=== PATIENT | female | born 2000 | race Caucasian/White ===

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

== ENCOUNTER 2018-05-25 16:23 | Emergency (ER) | payer MEDICAID ==
[2018-05-25] MEDS ORDERED: ACETAMINOPHEN 1,000 MG/100 ML BTL IVPB ONE (17:18)
[2018-05-25] MEDS ORDERED: 0.9 % SODIUM CHLORIDE 1,000 ML BAG IV ONE (17:18)
[2018-05-25] MEDS ORDERED: ONDANSETRON HCL IV 4 MG/2 ML VIAL IVP ONE (17:18)
--- NOTE | 2018-05-25 17:24 | Emergency Department Record ---
History of Present Illness - General Chief Complaint: Abdominal Pain Stated Complaint: ABD PAINS AND BLOOD IN STOOL Time Seen by Provider: 05/25/18 17:13 Source: Patient Mode of Arrival: Ambulatory Limitations: No limitations - History of Present Illness Initial Comments: 18 yo female presents with crampy abdominal pain, nausea, and diarrhea. The onset was this morning around 10 am. She states some of the material in the diarrhea looked pinkish. NO recent antibiotics. NO known sick contacts. The pain is across the middle of the abdomen. MD Complaint: Abdominal pain, Other (nausea, diarrhea) Onset/Timin -: Days(s) Location: Periumbilical, LUQ, RUQ Radiation: None Migration to: No migration Severity: Mild Severity scale (1-10): 10 Quality: Sharp Consistency: Constant Improves With: Nothing Worsens With: Nothing Associated Symptoms: Anorexia, Diarrhea, Nausea Treatments Prior to Arrival: Other - Related Data Home Medications Medication Instructions Recorded Confirmed Last Taken Fluoxetine HCl [Prozac] 40 mg PO DAILY 05/25/18 05/25/18 05/25/18 08:00 Methylphenidate HCl [Ritalin] 5 mg PO DAILY 05/25/18 05/25/18 Unknown Sucralfate [Carafate] PO Q6H PRN 05/25/18 05/25/18 14:00 Previous Rx's Medication Instructions Recorded Ondansetron [Zofran Odt] 4 mg PO Q8H #15 tab.rapdis 05/25/18 Allergies Allergy/AdvReac Type Severity Reaction Status Date / Time omeprazole AdvReac Intermediate ABDOMINAL Verified 05/25/18 17:08 PAIN Travel Screening - Travel/Exposure Within Last 30 Days Have you traveled within the last 30 days?: No - Travel/Exposure Within Last Year Have you traveled outside the [place] in the last year?: No - Additonal Travel Details Have you been exposed to anyone with a communicable illness?: No - Travel Symptoms Symptom Screening: Diarrhea, Vomiting Review of Systems Constitutional: Reports: Chills. Denies: Fever, Malaise Eyes: Denies: Eye discharge ENT: Denies: Congestion, Throat pain Respiratory: Denies: Cough, Dyspnea Cardiovascular: Denies: Chest pain, Palpitations, Syncope Endocrine: Denies: Fatigue Gastrointestinal: Reports: Abdominal pain, Diarrhea, Nausea. Denies: Constipation, Hematemesis, Hematochezia, Melena, Vomiting Genitourinary: Denies: Dysuria, Urgency Musculoskeletal: Denies: Arthralgia, Back pain, Neck pain Skin: Denies: Bruising, Change in color, Rash Neurological: Denies: Headache Psychiatric: Denies: Anxiety Hematological/Lymphatic: Denies: Easy bleeding, Easy bruising Past Medical History - SOCIAL HISTORY Smoking Status: Current every day smoker Alcohol Use: None Drug Use Detail:: Marijuana - RESPIRATORY Hx Respiratory Disorders: No - CARDIOVASCULAR Hx Cardio Disorders: No - NEURO Hx Neuro Disorders: Yes Hx Headaches: Yes - GI Hx GI Disorders: Yes Hx Abdominal Pain: Yes Hx Reflux: Yes Hx Nausea/Vomiting: Yes Hx Rectal Bleeding: Yes Hx Ulcer: Yes (no bleeding) Hx Wt Loss/Wt Gain: Yes (lost 22 lbs/5 months) Comment:: diarrhea on/off, has occ blood in stool - Hx Genitourinary Disorders: Yes - ENDOCRINE Hx Endocrine Disorders: No - MUSCULOSKELETAL Hx Musculoskeletal Disorders: Yes - PSYCH Hx Psych Problems: Yes Hx Depression: Yes Comment:: ADHD; ODD - HEMATOLOGY/ONCOLOGY Hx Hematology/Oncology Disorders: No Family Medical History Any Significant Family History?: Yes Hx Depression: Brother/Sister *Depression Comment: sister Hx Heart Disease: Grandparents Hx HTN: Mother, Grandparents Hx Kidney Disease: Mother Hx Resp Disorders: Mother *Resp Comment: copd Physical Exam - General General Appearance: Alert, Oriented x3, Cooperative, No acute distress Limitations: No limitations - Head Head exam: Atraumatic - Eye Eye exam: Normal appearance. negative: Conjunctival injection - ENT ENT exam: Normal exam Ear exam: Normal external inspection Nasal Exam: Normal inspection Mouth exam: Normal external inspection - Neck Neck exam: Normal inspection - Respiratory Respiratory exam: Normal lung sounds bilaterally. negative: Respiratory distress - Cardiovascular Cardiovascular Exam: Regular rate, Normal rhythm, Normal heart sounds - GI/Abdominal GI/Abdominal exam: Soft, Normal bowel sounds, Tenderness (mild tenderness mid abdomen, very soft, mild tenderness). negative: Diminished bowel sounds, Distended, Guarding, Hernia, Rebound, Rigid - Extremities Extremities exam: Normal inspection. negative: Pedal edema - Back Back exam: Denies: CVA tenderness (R), CVA tenderness (L) - Neurological Neurological exam: Alert, Oriented X3 - Psychiatric Psychiatric exam: Normal affect, Normal mood - Skin Skin exam: Dry, Intact, Normal color, Warm Course Vital Signs 05/25/18 16:57 Temperature 98.3 F Pulse Rate 71 Respiratory 17 Rate Blood Pressure 119/69 Pulse Ox 100 - Reevaluation(s) Reevaluation #1: 05/25/18 18:25 The CBC was reviewed No acute changes. No anemia 05/25/18 19:05 The labs were reviewed No acute changes or abnormalities The patient has not had any vomiting or diarrhea The abdomen is very soft I do not recommend CT at this time as her symptoms are most consistent with enteritis with vomiting and diarrhea I discussed reasons to return if she has an fever, return of diarrhea or bloody stools. Medical Decision Making - Lab Data Result diagrams: 05/25/18 18:04 05/25/18 18:04 Disposition Disposition: Discharge Clinical Impression: Diarrhea Disposition: Home, Self-Care Condition: (1) Good Instructions: Acute Diarrhea (ED) Additional Instructions: Return if you have any return of diarrhea, blood in the stool, fever or pain Off work tomorrow, rest and stay hydrated. Prescriptions: Ondansetron [Zofran Odt] 4 mg PO Q8H #15 tab.rapdis Forms: Patient Portal Access Time of Disposition: 19:08 Quality - Quality Measures Quality Measures: N/A - Blood Pressure Screening Does Patient Have Any of the Following: No Blood Pressure Classification: Normal BP Reading Systolic Measurement: 119 Diastolic Measurement: 69 Screening for High Blood Pressure: < Normal BP, F/U Not Required > [G8783]
[2018-05-25 18:13] LABS: BASO % 0.5 % (0-6); EOS % 0.4 % (0-6); GRAN % 61.3 % (47-80); HEMATOCRIT 39.7 % (35.0-47.0); HEMOGLOBIN 12.8 gm/dl (11.6-16.0); LYMPH % 28.9 % (16-45); MEAN CELL VOLUME 90.8 fl (81-97); MEAN CORPUSCULAR HEMOGLOBIN 29.3 pg (27-33); MEAN CORPUSCULAR HGB CONC 32.2 g/dl (32-36); MEAN PLATELET VOLUME 10.8 fl (7.4-10.4); MONO % 8.9 % (0-9); PLATELET COUNT 218 K/uL (130-400); RED BLOOD COUNT 4.37 M/uL (3.80-5.40); RED CELL DISTRIBUTION WIDTH 14.7 % (11.5-14.5); WHITE BLOOD COUNT W/O DIFF 8.5 K/uL (4.2-12.2)
[2018-05-25 18:24] LABS: BLOOD UREA NITROGEN 13 mg/dL (6-20); CREATININE 0.7 mg/dL (0.5-0.9); EST GLOMERULAR FILTRATION RATE > 60 mL/min
[2018-05-25 18:27] LABS: GLUCOSE,RANDOM 78 mg/dL (74-109)
[2018-05-25 18:30] LABS: ALB/GLOB RATIO 1.4 (1.1-1.8); ALBUMIN 4.1 g/dL (4.0-5.0); ALKALINE PHOSPHATASE 68 U/L (45-87); ALT/SGPT 11 U/L (<33); AST/SGOT 16 U/L (10.0-35.0); LIPASE 31 U/L (13-60)
[2018-05-25 19:12] LABS: URINE APPEARANCE CLEAR; URINE BILIRUBIN NEGATIVE (NEGATIVE); URINE BLOOD NEGATIVE (NEGATIVE); URINE COLOR YELLOW; URINE GLUCOSE (UA) NEGATIVE (NEGATIVE); URINE KETONE NEGATIVE (NEGATIVE); URINE LEUKOCYTE ESTERASE NEGATIVE (NEGATIVE); URINE NITRITE NEGATIVE (NEGATIVE); URINE PROTEIN NEGATIVE (NEGATIVE); URINE UROBILINOGEN 0.2 E.U./dL (0.20 - 1.00)
[2018-05-25 19:13] LABS: HCG,QUALITATIVE URINE NEGATIVE (NEGATIVE)
== END 2018-05-25 19:27 | disposition home or self-care (01) ==
LOC: ER 16:23
DX: R19.7 Diarrhea, unspecified (principal); R10.33 Periumbilical pain; R11.0 Nausea; F17.210 Nicotine dependence, cigarettes, uncomplicated
CPT/HCPCS: 99284 ×2; 96365; 96375; 96361; 83690; 85025; 80053; 81003; 81025; J2405; J7030

== ENCOUNTER 2018-06-11 22:36 | Emergency (ER) | payer MEDICAID ==
[2018-06-11] MEDS ORDERED: IBUPROFEN 600 MG TABLET PO ONE (23:01)
--- NOTE | 2018-06-11 23:14 | Emergency Department Record ---
History of Present Illness - General Chief Complaint: Ankle/Foot Injury Stated Complaint: RT FOOT PAIN Time Seen by Provider: 06/11/18 22:55 Source: Patient Mode of Arrival: Ambulatory Limitations: No limitations - History of Present Illness Initial Comments: pt had a 450lb cart role over her foot today. Complaint: Foot injury Onset/Timin -: Hour(s) Injury: Foot: Right Type of Injury: Other Place: Work Severity: Moderate Severity scale (1-10): 10 Improves With: Nothing Worsens With: Weight bearing Context: Other Associated Symptoms: Unable to bear weight Treatments Prior to Arrival: Cold therapy - Related Data Home Medications Medication Instructions Recorded Confirmed Last Taken No Home Med [NO HOME MEDS] 06/11/18 06/11/18 Unknown Allergies Allergy/AdvReac Type Severity Reaction Status Date / Time omeprazole AdvReac Intermediate ABDOMINAL Verified 06/11/18 22:43 PAIN Travel Screening - Travel/Exposure Within Last 30 Days Have you traveled within the last 30 days?: No - Travel/Exposure Within Last Year Have you traveled outside the [place] in the last year?: No - Additonal Travel Details Have you been exposed to anyone with a communicable illness?: No - Travel Symptoms Symptom Screening: None Review of Systems Reviewed: No additional complaints except as noted below Constitutional: Reports: As per HPI. Denies: Chills, Fever, Malaise, Night sweats, Weakness, Weight change Eyes: Reports: As per HPI. Denies: Eye discharge, Eye pain, Photophobia, Vision change ENT: Reports: As per HPI. Denies: Congestion, Dental pain, Ear pain, Epistaxis , Hearing loss, Throat pain Respiratory: Reports: As per HPI. Denies: Cough, Dyspnea, Hemoptysis, Stridor, Wheezes Cardiovascular: Reports: As per HPI. Denies: Arrhythmia, Chest pain, Dyspnea on exertion, Edema, Murmurs, Orthopnea, Palpitations, Paroxysmal nocturnal dyspnea, Rheumatic Fever, Syncope Endocrine: Reports: As per HPI. Denies: Fatigue, Heat or cold intolerance, Polydipsia, Polyuria Gastrointestinal: Reports: As per HPI. Denies: Abdominal pain, Constipation, Diarrhea, Hematemesis, Hematochezia, Melena, Nausea, Vomiting Genitourinary: Reports: As per HPI. Denies: Abnormal menses, Discharge, Dyspareunia, Dysuria, Frequency, Hematuria, Incontinence, Retention, Urgency Musculoskeletal: Reports: As per HPI. Denies: Arthralgia, Back pain, Gout, Joint swelling, Myalgia, Neck pain Skin: Reports: As per HPI. Denies: Bruising, Change in color, Change in hair/ nails, Lesions, Pruritus, Rash Neurological: Reports: As per HPI. Denies: Abnormal gait, Confusion, Headache, Numbness, Paresthesias, Seizure, Tingling, Tremors, Vertigo, Weakness Psychiatric: Reports: As per HPI. Denies: Anxiety, Auditory hallucinations, Depression, Homicidal thoughts, Suicidal thoughts, Visual hallucinations Hematological/Lymphatic: Reports: As per HPI. Denies: Anemia, Blood Clots, Easy bleeding, Easy bruising, Swollen glands Past Medical History - SOCIAL HISTORY Smoking Status: Current every day smoker Alcohol Use: None Drug Use: Occasional Drug Use Detail:: Marijuana - RESPIRATORY Hx Respiratory Disorders: No - CARDIOVASCULAR Hx Cardio Disorders: No - NEURO Hx Neuro Disorders: Yes Hx Headaches: Yes - GI Hx GI Disorders: Yes Hx Abdominal Pain: Yes Hx Reflux: Yes Hx Nausea/Vomiting: Yes Hx Rectal Bleeding: Yes Hx Ulcer: Yes (no bleeding) Hx Wt Loss/Wt Gain: Yes (lost 22 lbs/5 months) Comment:: diarrhea on/off, has occ blood in stool - Hx Genitourinary Disorders: No - ENDOCRINE Hx Endocrine Disorders: No - MUSCULOSKELETAL Hx Musculoskeletal Disorders: Yes - PSYCH Hx Psych Problems: Yes Hx Depression: Yes Comment:: ADHD; ODD - HEMATOLOGY/ONCOLOGY Hx Hematology/Oncology Disorders: No Family Medical History Any Significant Family History?: No Hx Depression: Brother/Sister *Depression Comment: sister Hx Heart Disease: Grandparents Hx HTN: Mother, Grandparents Hx Kidney Disease: Mother Hx Resp Disorders: Mother *Resp Comment: copd Physical Exam - General General Appearance: Alert, Oriented x3, Cooperative, Mild distress - Head Head exam: Normal inspection - Eye Eye exam: Normal appearance, PERRL, EOMI Pupils: Normal accommodation - ENT ENT exam: Normal exam, Mucous membranes moist, Normal external ear exam, Normal orophraynx Ear exam: Normal external inspection. negative: External canal tenderness Nasal Exam: Normal inspection. negative: Discharge, Sinus tenderness Mouth exam: Normal external inspection, Tongue normal Teeth exam: Normal inspection. negative: Dental caries Throat exam: Normal inspection. negative: Tonsillar erythema, Tonsillar exudate - Neck Neck exam: Normal inspection, Full ROM. negative: Tenderness - Respiratory Respiratory exam: Normal lung sounds bilaterally. negative: Respiratory distress - Cardiovascular Cardiovascular Exam: Regular rate, Normal rhythm, Normal heart sounds - GI/Abdominal GI/Abdominal exam: Soft, Normal bowel sounds. negative: Tenderness - Rectal Rectal exam: Deferred - exam: Deferred - Extremities Extremities exam: Normal inspection, Full ROM, Normal capillary refill, Tenderness (r foot) - Back Back exam: Reports: Normal inspection, Full ROM. Denies: Muscle spasm, Rash noted, Tenderness - Neurological Neurological exam: Alert, CN II-XII intact, Normal gait, Oriented X3 - Psychiatric Psychiatric exam: Normal affect, Normal mood - Skin Skin exam: Dry, Intact, Normal color, Warm Course Vital Signs 06/11/18 22:41 Temperature 97.7 F Pulse Rate [ 81 Pulse Ox Probe] Respiratory 20 Rate Blood Pressure 121/75 [Left Arm] Pulse Ox 100 Disposition Disposition: Discharge Clinical Impression: Foot contusion Qualifiers: Encounter type: initial encounter Laterality: right Qualified Code(s): S90.31XA - Contusion of right foot, initial encounter Disposition: Home, Self-Care Condition: (1) Good Instructions: Foot Contusion (ED) Additional Instructions: follow up with family doctor. ice and elevation. return sooner if worse. motrin with food Forms: Patient Portal Access Quality - Quality Measures Quality Measures: N/A - Blood Pressure Screening Does Patient Have Any of the Following: No Blood Pressure Classification: Pre-Hypertensive BP Reading Systolic Measurement: 121 Diastolic Measurement: 75 Screening for High Blood Pressure: < Pre-Hypertensive BP, F/U Documented > [ G8950] Pre-Hypertensive Follow-up Interventions: Follow-up with rescreen every year.
--- NOTE | 2018-06-12 14:38 | RADIOLOGY REPORT ---
EXAM: RIGHT FOOT HISTORY: FOOT TRAUMA. TECHNIQUE: Three views of the right foot were obtained. Comparison: Right foot radiographs 03/03/17. FINDINGS: No acute fracture is seen. No evidence of dislocation. 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 IMPRESSION: NO ACUTE OSSEOUS FINDINGS. JOB NUMBER: [id number] MTDD
== END 2018-06-11 23:46 | disposition home or self-care (01) ==
LOC: ER 22:36
DX: S90.31XA Contusion of right foot, initial encounter (principal); W22.8XXA Striking against or struck by other objects, initial encounter; Y99.0 Civilian activity done for income or pay; F17.210 Nicotine dependence, cigarettes, uncomplicated
CPT/HCPCS: 99283

== ENCOUNTER 2018-06-24 10:04 | Emergency (ER) | payer MEDICAID ==
--- NOTE | 2018-06-24 10:37 | Emergency Department Record ---
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 She has been cutting her L arm and did cut it again a half hour ago. The patient denies any overdose or taking any pills. Her Td is UTD. MD Complaint: Feels depressed, Suicidal ideation Onset/Timin -: Minutes(s) Associated Psychiatric Symptoms: Depression, Suicidal ideation History of same: Yes Quality: Constant Improves With: None Worsens With: None Associated Symptoms: Denies other symptoms Treatments Prior to Arrival: None If Self Harm: Admits thoughts of self harm, Has plan, Has acted on plan, Self- inflicted trauma Details of Plan: Patient admits to taking a large knife and cutting her arm in an attempt to kill herself. - [place] Coma Scale Eye Response: (4) Open spontaneously Motor Response: (6) Obeys commands Verbal Response: (5) Oriented Usman Total: 15 - Related Data Allergies Allergy/AdvReac Type Severity Reaction Status Date / Time omeprazole AdvReac Intermediate ABDOMINAL Verified 06/11/18 22:43 PAIN Review of Systems Constitutional: Denies: Chills, Fever Past Medical History - SOCIAL HISTORY Smoking Status: Current every day smoker Alcohol Use: None Drug Use: Occasional Drug Use Detail:: Marijuana - RESPIRATORY Hx Respiratory Disorders: No - CARDIOVASCULAR Hx Cardio Disorders: No - NEURO Hx Neuro Disorders: Yes Hx Headaches: Yes - GI Hx GI Disorders: Yes Hx Abdominal Pain: Yes Hx Reflux: Yes Hx Nausea/Vomiting: Yes Hx Rectal Bleeding: Yes Hx Ulcer: Yes (no bleeding) Hx Wt Loss/Wt Gain: Yes (lost 22 lbs/5 months) Comment:: diarrhea on/off, has occ blood in stool - Hx Genitourinary Disorders: No - ENDOCRINE Hx Endocrine Disorders: No - MUSCULOSKELETAL Hx Musculoskeletal Disorders: Yes - PSYCH Hx Psych Problems: Yes Hx Depression: Yes Comment:: ADHD; ODD - HEMATOLOGY/ONCOLOGY Hx Hematology/Oncology Disorders: No Family Medical History Any Significant Family History?: Yes Hx Depression: Brother/Sister *Depression Comment: sister Hx Heart Disease: Grandparents Hx HTN: Mother, Grandparents Hx Kidney Disease: Mother Hx Resp Disorders: Mother *Resp Comment: copd Physical Exam - General General Appearance: Alert, Cooperative, No acute distress - Head Head exam: Atraumatic, Normocephalic - Eye Eye exam: Normal appearance, PERRL - Neck Neck exam: Normal inspection, Full ROM. negative: Tenderness - Respiratory Respiratory exam: Normal lung sounds bilaterally. negative: Respiratory distress - Cardiovascular Cardiovascular Exam: Regular rate, Normal rhythm, Normal heart sounds - GI/Abdominal GI/Abdominal exam: Soft, Normal bowel sounds. negative: Tenderness - Extremities Extremities exam: negative: Normal inspection (There is a VERY superficial 3 cm L forearm lac present and many old scars from self injury.) - Neurological Neurological exam: Alert, Normal gait. negative: Abnormal gait, Motor sensory deficit - Psychiatric Psychiatric exam: Anxious, Depressed Course Vital Signs 06/24/18 10:12 Temperature 98.0 F Pulse Rate 118 H Respiratory 22 Rate Blood Pressure 140/88 Pulse Ox 99 - Reevaluation(s) Reevaluation #1: Procedure note: The L forearm does have a superficial 3 cm lac present. It was cleansed with sterile water and betadine and was closed with steri-strips. 06/24/18 11:06 Reevaluation #2: The patient is doing very well at this time and is resting comfortably. I did discuss the case with a third loader at [facility] and they will review the chart and hopefully accept her soon. 06/24/18 11:54 Reevaluation #3: The patient is doing very well at this time. She is very calm and cooperative and pleasant. 06/24/18 13:25 Reevaluation #4: The patient was accepted by [facility] so we will transfer. 06/24/18 13:34 Medical Decision Making - Data Complexity MDM Data: Labs Ordered and/or Reviewed - Lab Data Result diagrams: 06/24/18 10:45 06/24/18 10:45 Disposition Disposition: Discharge Clinical Impression: Suicide attempt Disposition: Acute Care Hospital Transfer Accepting Physician: Carlos Eduardo Time Discussed w/Accepting Physician: 13:35 Condition: (2) Stable Instructions: Depression (ED) Additional Instructions: Please proceed to [facility] and keep the L arm dry until healed. Forms: Patient Portal Access Time of Disposition: 13:35 Quality - Quality Measures Quality Measures: N/A - Blood Pressure Screening View Details: Yes Does Patient Have Any of the Following: No Blood Pressure Classification: Pre-Hypertensive BP Reading Systolic Measurement: 140 Diastolic Measurement: 88 Screening for High Blood Pressure: < Pre-Hypertensive BP, F/U Documented > [ G8950] Pre-Hypertensive Follow-up Interventions: Referral to alternative/primary care provider.
[2018-06-24 10:58] LABS: BASO % 0.2 % (0-6); EOS % 1.3 % (0-6); HEMATOCRIT 41.3 % (35.0-47.0); HEMOGLOBIN 13.2 gm/dl (11.6-16.0); LYMPH % 31.1 % (16-45); MEAN CELL VOLUME 90.4 fl (81-97); MEAN CORPUSCULAR HEMOGLOBIN 28.9 pg (27-33); MEAN PLATELET VOLUME 10.5 fl (7.4-10.4); MONO % 8.4 % (0-9); PLATELET COUNT 207 K/uL (130-400); RED BLOOD COUNT 4.57 M/uL (3.80-5.40); RED CELL DISTRIBUTION WIDTH 14.6 % (11.5-14.5); WHITE BLOOD COUNT W/O DIFF 6.3 K/uL (4.2-12.2)
[2018-06-24 11:14] LABS: BLOOD UREA NITROGEN 16 mg/dL (6-20); CREATININE 0.7 mg/dL (0.5-0.9); EST GLOMERULAR FILTRATION RATE > 60 mL/min; TOTAL PROTEIN 7.3 g/dL (6.6-8.7)
[2018-06-24 11:16] LABS: GLUCOSE,RANDOM 90 mg/dL (74-109)
[2018-06-24 11:19] LABS: ALB/GLOB RATIO 1.4 (1.1-1.8); ALBUMIN 4.3 g/dL (4.0-5.0); ALKALINE PHOSPHATASE 70 U/L (45-87); ALT/SGPT 17 U/L (<33); AST/SGOT 21 U/L (10.0-35.0)
[2018-06-24 11:23] LABS: ACETAMINOPHEN < 5.0 ug/mL (10.0-30.0); SALICYLATE < 0.3 mg/dL (2.8-20)
[2018-06-24 11:37] LABS: URINE APPEARANCE CLEAR; URINE BILIRUBIN NEGATIVE (NEGATIVE); URINE BLOOD NEGATIVE (NEGATIVE); URINE COLOR YELLOW; URINE GLUCOSE (UA) NEGATIVE (NEGATIVE); URINE KETONE NEGATIVE (NEGATIVE); URINE LEUKOCYTE ESTERASE NEGATIVE (NEGATIVE); URINE NITRITE NEGATIVE (NEGATIVE); URINE PROTEIN NEGATIVE (NEGATIVE); URINE UROBILINOGEN 0.2 E.U./dL (0.20 - 1.00)
[2018-06-24 11:43] LABS: AMPHETAMINE SCREEN URINE NOT DETECTED; BARBITURATE SCREEN URINE NOT DETECTED; BENZODIAZEPINE SCREEN URINE NOT DETECTED; COCAINE SCREEN URINE NOT DETECTED; METHADONE SCREEN URINE NOT DETECTED; METHAMPHETAMINE SCREEN NOT DETECTED; OPIATE SCREEN URINE NOT DETECTED; OXYCODONE SCREEN URINE NOT DETECTED; PHENCYCLIDINE SCREEN URINE NOT DETECTED; PROPOXYPHENE SCREEN URINE NOT DETECTED; THC SCREEN URINE NOT DETECTED; TRICYCLIC ANTIDEPRESSANT SCRN NOT DETECTED
[2018-06-24 11:53] LABS: HCG,QUALITATIVE URINE NEGATIVE (NEGATIVE)
== END 2018-06-24 14:09 | disposition short-term general hospital (02) ==
LOC: ER 10:04
DX: S51.812A Laceration without foreign body of left forearm, initial encounter (principal); X78.1XXA Intentional self-harm by knife, initial encounter; F17.210 Nicotine dependence, cigarettes, uncomplicated
CPT/HCPCS: 80053; 80305; 80320; 80329; 81003; 81025; 85025; 99285

== ENCOUNTER 2018-08-08 19:44 | Emergency (ER) | payer MEDICAID ==
--- NOTE | 2018-08-08 20:00 | Emergency Department Record ---
History of Present Illness - General Chief Complaint: Abdominal Pain Stated Complaint: STOMACH ULCERS Time Seen by Provider: 08/08/18 19:51 Source: Patient Mode of Arrival: Ambulatory Limitations: No limitations - History of Present Illness Initial Comments: 18 yo female presents to ED for evaluation of "abdominal pain from my stomach ulcers". Patient reports a history of stomach ulcers for the past 4.5 years, underwent endoscopy x 3. Patient reports that she stopped her carafate 1 month ago, does not take a PPI at her baseline. Patient does report nausea/vomiting symptoms, denies fevers, chills, or previous abdominal surgery. MD Complaint: Abdominal pain Onset/Timin -: Days(s) Location: Epigastric Radiation: None Severity: Moderate Quality: Burning Consistency: Constant Improves With: Nothing Worsens With: Nothing Associated Symptoms: Vomiting - Related Data Home Medications Medication Instructions Recorded Confirmed Last Taken Albuterol Sulfate [Albuterol 2 puff INH Q4HR PRN 08/08/18 08/08/18 08/08/18 Sulfate Hfa] Previous Rx's Medication Instructions Recorded Pantoprazole Sodium [Protonix] 40 mg PO DAILY #30 tablet. 08/08/18 Allergies Allergy/AdvReac Type Severity Reaction Status Date / Time omeprazole AdvReac Intermediate ABDOMINAL Verified 08/08/18 20:33 PAIN Review of Systems Constitutional: Denies: Chills, Fever, Malaise, Night sweats Eyes: Denies: Eye discharge, Eye pain ENT: Denies: Congestion, Ear pain, Epistaxis Respiratory: Denies: Cough, Dyspnea Cardiovascular: Denies: Chest pain, Dyspnea on exertion Endocrine: Denies: Fatigue, Heat or cold intolerance Gastrointestinal: Reports: Abdominal pain, Nausea, Vomiting Genitourinary: Denies: Incontinence, Retention Musculoskeletal: Denies: Arthralgia, Back pain Skin: Denies: Bruising, Change in color Neurological: Denies: Abnormal gait, Confusion, Headache, Seizure Psychiatric: Denies: Anxiety Hematological/Lymphatic: Denies: Anemia, Blood Clots Past Medical History - SOCIAL HISTORY Smoking Status: Current every day smoker Drug Use: Occasional Drug Use Detail:: Marijuana - RESPIRATORY Hx Respiratory Disorders: No - CARDIOVASCULAR Hx Cardio Disorders: No - NEURO Hx Neuro Disorders: Yes Hx Headaches: Yes - GI Hx GI Disorders: Yes Hx Abdominal Pain: Yes Hx Reflux: Yes Hx Nausea/Vomiting: Yes Hx Rectal Bleeding: Yes Hx Ulcer: Yes (no bleeding) Hx Wt Loss/Wt Gain: Yes (lost 22 lbs/5 months) Comment:: diarrhea on/off, has occ blood in stool - Hx Genitourinary Disorders: No - ENDOCRINE Hx Endocrine Disorders: No - MUSCULOSKELETAL Hx Musculoskeletal Disorders: Yes - PSYCH Hx Psych Problems: Yes Hx Depression: Yes Comment:: ADHD; ODD - HEMATOLOGY/ONCOLOGY Hx Hematology/Oncology Disorders: No Family Medical History Hx Depression: Brother/Sister *Depression Comment: sister Hx Heart Disease: Grandparents Hx HTN: Mother, Grandparents Hx Kidney Disease: Mother Hx Resp Disorders: Mother *Resp Comment: copd Physical Exam - General General Appearance: Alert, Oriented x3, Cooperative, Mild distress Limitations: No limitations - Head Head exam: Atraumatic, Normocephalic, Normal inspection Head exam detail: negative: Abrasion, Contusion, Alba's sign, General tenderness, Hematoma, Laceration - Eye Eye exam: Normal appearance. negative: Conjunctival injection, Periorbital swelling, Periorbital tenderness, Scleral icterus - ENT Ear exam: negative: Auricular hematoma, Auricular trauma Nasal Exam: negative: Active bleeding, Discharge, Dried blood, Foreign body Mouth exam: negative: Drooling, Laceration, Muffled voice, Tongue elevation - Neck Neck exam: Normal inspection. negative: Meningismus, Tenderness - Respiratory Respiratory exam: Normal lung sounds bilaterally. negative: Rales, Respiratory distress, Rhonchi, Stridor - Cardiovascular Cardiovascular Exam: Regular rate, Normal rhythm, Normal heart sounds - GI/Abdominal GI/Abdominal exam: Soft, Tenderness (TTP to the epigastric region on examination , no rebound or guarding symptoms are present. No peritoneal signs are present on examination.). negative: Rebound, Rigid - Rectal Rectal exam: Deferred - exam: Deferred - Extremities Extremities exam: Normal inspection. negative: Pedal edema, Tenderness - Back Back exam: Denies: CVA tenderness (R), CVA tenderness (L) - Neurological Neurological exam: Alert, Normal gait, Oriented X3 - Psychiatric Psychiatric exam: Normal affect, Normal mood - Skin Skin exam: Normal color. negative: Abrasion Type of lesion: negative: abrasion Course Vital Signs 08/08/18 19:49 Temperature 98.1 F Pulse Rate [ 102 H Pulse Ox Probe] Respiratory 20 Rate Blood Pressure 102/90 [Left Arm] Pulse Ox 99 - Reevaluation(s) Reevaluation #1: 08/08/18 19:58 Patient was seen and examined Discussed performing laboratory studies for further evaluation, patient declines stating "I know this pain is from my ulcers". GI cocktail ordered, will reassess. Reevaluation #2: 08/08/18 20:40 Patient was reassessed, reports that she is feeling much better, resting comfortably on her mobile phone. Patient appears stable for discharge on Protonix as directed (reports previous reaction to pepcid). Patient appears stable for discharge at this time. Disposition Disposition: Discharge Clinical Impression: Epigastric abdominal pain Disposition: Home, Self-Care Condition: (2) Stable Instructions: Peptic Ulcer (ED) Additional Instructions: Return to ED if your symptoms worsen or if you have any concerns. Protonix as directed. Follow-up with your family doctor in 3-5 days as directed. Prescriptions: Pantoprazole Sodium [Protonix] 40 mg PO DAILY #30 tablet.dr Forms: Patient Portal Access Time of Disposition: 20:42 Quality - Quality Measures Quality Measures: N/A - Blood Pressure Screening Does Patient Have Any of the Following: No Blood Pressure Classification: Hypertensive Reading Systolic Measurement: 102 Diastolic Measurement: 90 Screening for High Blood Pressure: < First Hypertensive BP, F/U Documented > [ G8950] First Hypertensive Follow-up Interventions: Referral to alternative/primary care provider.
[2018-08-08] MEDS: MAGNESIUM HYDROXIDE/AL HYDROX 30 ML, LIDOCAINE VISC 2% 15ML 15 ML PO ONE ×2 (20:07)
== END 2018-08-08 20:53 | disposition home or self-care (01) ==
LOC: ER 19:44
DX: R10.13 Epigastric pain (principal); R11.2 Nausea with vomiting, unspecified; F17.210 Nicotine dependence, cigarettes, uncomplicated
CPT/HCPCS: 99282; 99283

== ENCOUNTER 2018-08-29 20:33 | Emergency (ER) | payer MEDICAID ==
[2018-08-29] MEDS ORDERED: ACETAMINOPHEN 500 MG TABLET PO ONE (20:41)
--- NOTE | 2018-08-29 20:46 | Emergency Department Record ---
History of Present Illness - General Chief complaint: Pain Stated complaint: LT KNEE PAIN/SWELLING Time Seen by Provider: 08/29/18 20:35 Source: Patient, Family Mode of Arrival: Wheelchair Limitations: No limitations - History of Present Illness Initial comments: 18 yo female presents with a left knee injury. She was trying to catch keys and twisted her left knee. She felt a pop. She has pain with standing or movement. No history of prior knee disease. She denies and other pain or injury. MD Complaint: Joint pain -: Minutes(s) Location: Left -: Yes Arthralgia Radiation: Distal Quality: Aching Consistency: Constant Improves with: Elevation, Immobilization Worsens with: Palpation, Walking, Weight bearing Associated Symptoms: Denies other symptoms - Related Data Previous Rx's Medication Instructions Recorded Pantoprazole Sodium [Protonix] 40 mg PO DAILY #30 tablet. 08/08/18 Allergies Allergy/AdvReac Type Severity Reaction Status Date / Time omeprazole AdvReac Intermediate ABDOMINAL Verified 08/08/18 20:33 PAIN Review of Systems Constitutional: Denies: Chills, Fever, Malaise, Weakness Eyes: Denies: Eye discharge ENT: Denies: Congestion, Throat pain Respiratory: Denies: Cough Cardiovascular: Denies: Chest pain, Syncope Endocrine: Denies: Fatigue Gastrointestinal: Denies: Abdominal pain, Diarrhea, Nausea, Vomiting Genitourinary: Denies: Abnormal menses Musculoskeletal: Reports: As per HPI, Arthralgia Skin: Denies: Bruising, Change in color, Rash Neurological: Denies: Headache Psychiatric: Denies: Anxiety Hematological/Lymphatic: Denies: Easy bleeding, Easy bruising Past Medical History - SOCIAL HISTORY Smoking Status: Current every day smoker Drug Use: Occasional Drug Use Detail:: Marijuana - RESPIRATORY Hx Respiratory Disorders: No - CARDIOVASCULAR Hx Cardio Disorders: No - NEURO Hx Neuro Disorders: Yes Hx Headaches: Yes - GI Hx GI Disorders: Yes Hx Abdominal Pain: Yes Hx Reflux: Yes Hx Nausea/Vomiting: Yes Hx Rectal Bleeding: Yes Hx Ulcer: Yes (no bleeding) Hx Wt Loss/Wt Gain: Yes (lost 22 lbs/5 months) Comment:: diarrhea on/off, has occ blood in stool - Hx Genitourinary Disorders: No - ENDOCRINE Hx Endocrine Disorders: No - MUSCULOSKELETAL Hx Musculoskeletal Disorders: Yes - PSYCH Hx Psych Problems: Yes Hx Depression: Yes Comment:: ADHD; ODD - HEMATOLOGY/ONCOLOGY Hx Hematology/Oncology Disorders: No Family Medical History Hx Depression: Brother/Sister *Depression Comment: sister Hx Heart Disease: Grandparents Hx HTN: Mother, Grandparents Hx Kidney Disease: Mother Hx Resp Disorders: Mother *Resp Comment: copd Physical Exam - General General Appearance: Alert, Oriented x3, Cooperative, No acute distress Limitations: No limitations - Head Head exam: Atraumatic, Normal inspection - Eye Eye exam: Normal appearance. negative: Conjunctival injection - ENT ENT exam: Normal exam Ear exam: Normal external inspection Nasal Exam: Normal inspection Mouth exam: Normal external inspection - Neck Neck exam: Normal inspection - Respiratory Respiratory exam: Normal lung sounds bilaterally. negative: Respiratory distress - Cardiovascular Cardiovascular Exam: Regular rate, Normal rhythm, Normal heart sounds - Rectal Rectal exam: Deferred - exam: Deferred - Extremities Extremities exam: Normal inspection, Full ROM (quads, patella intact able to lift foot off bed, patella is midline), Joint swelling, Normal capillary refill , Tenderness. negative: Calf tenderness, Pedal edema Image of Full Body: 1 - anterior tenderness, intact patella, quads tendon, patellar tendon intact, tender lateral - Back Back exam: Denies: CVA tenderness (R), CVA tenderness (L), Tenderness - Neurological Neurological exam: Alert, Oriented X3 - Psychiatric Psychiatric exam: Normal affect, Normal mood - Skin Skin exam: Dry, Intact, Normal color, Warm Course Vital Signs 08/29/18 20:39 Temperature 98.2 F Pulse Rate [ 88 Left] Respiratory 16 Rate Blood Pressure 119/82 [Left Arm] Pulse Ox 100 - Reevaluation(s) Reevaluation #1: 08/29/18 21:20 The knee XR is negative for acute process She will be treated supportively with crutches and immobilizer She was instructed to follow up with her PCP in the next week if pain continues Disposition Disposition: Discharge Clinical Impression: Left knee sprain Disposition: Home, Self-Care Condition: (1) Good Instructions: Knee Sprain (ED) Additional Instructions: Call your doctor for the next available follow up appointment to recheck the knee You may need further testing if the pain continues (possible MRI) Use the brace and crutches for support and comfort Return to the ER for a recheck if worse, any new concerns or questions Review this ER visit and the tests performed with your family doctor Forms: Patient Portal Access Time of Disposition: 21:21 Quality - Quality Measures Quality Measures: N/A - Blood Pressure Screening Does Patient Have Any of the Following: No Blood Pressure Classification: Pre-Hypertensive BP Reading Systolic Measurement: 119 Diastolic Measurement: 82 Screening for High Blood Pressure: < Pre-Hypertensive BP, F/U Documented > [ G8950] Pre-Hypertensive Follow-up Interventions: Referral to alternative/primary care provider.
--- NOTE | 2018-08-31 10:58 | RADIOLOGY REPORT ---
EXAM: LEFT KNEE HISTORY: SLIPPED AND FELL. KNEE POPPED. LEFT KNEE PAIN. TECHNIQUE: Four views of the left knee were obtained. Comparison: None. FINDINGS: The bones appear intact. There is no acute fracture, dislocation, or joint effusion. The joint spaces are preserved. There are no degenerative changes. IMPRESSION: NO ACUTE LEFT KNEE PATHOLOGY IDENTIFIED. JOB NUMBER: [id number] MTDD
== END 2018-08-29 21:43 | disposition home or self-care (01) ==
LOC: ER 20:33
DX: S83.92XA Sprain of unspecified site of left knee, initial encounter (principal); X50.1XXA Overexertion from prolonged static or awkward postures, initial encounter; F17.210 Nicotine dependence, cigarettes, uncomplicated
CPT/HCPCS: 99283

== ENCOUNTER 2018-09-17 16:21 | Emergency (ER) | payer MEDICAID ==
[2018-09-17] MEDS ORDERED: ONDANSETRON 4 MG ODT TABLET SL ONE ×2 (16:38→18:28)
[2018-09-17] MEDS ORDERED: ONDANSETRON HCL IV 4 MG/2 ML VIAL IVP ONE (16:42)
[2018-09-17] MEDS ORDERED: 0.9 % SODIUM CHLORIDE 1,000 ML BAG IV ONE (16:42)
--- NOTE | 2018-09-17 16:49 | Emergency Department Record ---
History of Present Illness - General Chief complaint: Vomiting Stated complaint: VOMITING Time Seen by Provider: 09/17/18 16:37 Source: Patient Mode of Arrival: Ambulatory Limitations: No limitations - History of Present Illness Initial comments: 18 yo female presents with onset of vomiting about 1 hour ago. She was having a normal, typical day prior to the onset of vomiting. No blood in the vomit. She has not had any pain or fevers. She does have a history of gastritis. She states she ate polish food for lunch and that was normal. No known sick contacts. MD complaint: Nausea, Vomiting Onset/Timin -: Hour(s) Description of Vomiting: Watery Description of Diarrhea: Other (None) Location: Other Radiation: None Severity: Moderate Quality: Other Improves with: None Worsens with: None Associated Symptoms: Denies other symptoms - Related Data Previous Rx's Medication Instructions Recorded Pantoprazole Sodium [Protonix] 40 mg PO DAILY #30 tablet. 08/08/18 Ondansetron [Zofran Odt] 4 mg PO Q8H #15 tab.rapdis 09/17/18 Allergies Allergy/AdvReac Type Severity Reaction Status Date / Time omeprazole AdvReac Intermediate ABDOMINAL Verified 09/17/18 16:28 PAIN Travel Screening - Travel/Exposure Within Last 30 Days Have you traveled within the last 30 days?: No Review of Systems Constitutional: Denies: Chills, Fever, Malaise, Weakness Eyes: Denies: Eye discharge ENT: Denies: Congestion, Throat pain Respiratory: Denies: Cough, Dyspnea Cardiovascular: Denies: Chest pain, Palpitations, Syncope Endocrine: Denies: Fatigue Gastrointestinal: Reports: Nausea, Vomiting. Denies: Diarrhea Genitourinary: Denies: Dysuria Musculoskeletal: Reports: Arthralgia. Denies: Back pain, Myalgia Skin: Denies: Bruising, Change in color Neurological: Denies: Numbness, Weakness Psychiatric: Denies: Anxiety Hematological/Lymphatic: Denies: Easy bleeding, Easy bruising Past Medical History - SOCIAL HISTORY Smoking Status: Current every day smoker Alcohol Use: None Drug Use: Occasional Drug Use Detail:: Marijuana - RESPIRATORY Hx Respiratory Disorders: Yes Hx Bronchitis: Yes (2018) - CARDIOVASCULAR Hx Cardio Disorders: No - NEURO Hx Neuro Disorders: Yes Hx Headaches: Yes - GI Hx GI Disorders: Yes Hx Abdominal Pain: Yes Hx Reflux: Yes Hx Nausea/Vomiting: Yes Hx Rectal Bleeding: Yes Hx Ulcer: Yes Hx Wt Loss/Wt Gain: Yes - Hx Genitourinary Disorders: Yes Hx UTI: Yes - ENDOCRINE Hx Endocrine Disorders: No - MUSCULOSKELETAL Hx Musculoskeletal Disorders: Yes - PSYCH Hx Psych Problems: Yes Hx Depression: Yes Comment:: ADHD; ODD - HEMATOLOGY/ONCOLOGY Hx Hematology/Oncology Disorders: No Family Medical History Any Significant Family History?: Yes Hx Depression: Brother/Sister *Depression Comment: sister Hx Heart Disease: Grandparents Hx HTN: Mother, Grandparents Hx Kidney Disease: Mother Hx Resp Disorders: Mother *Resp Comment: copd Physical Exam - General General Appearance: Alert, Oriented x3, Cooperative, No acute distress Limitations: No limitations - Head Head exam: Atraumatic, Normal inspection - Eye Eye exam: Normal appearance. negative: Conjunctival injection, Scleral icterus - ENT ENT exam: Normal exam Ear exam: Normal external inspection Nasal Exam: Normal inspection Mouth exam: Normal external inspection Teeth exam: Normal inspection - Neck Neck exam: Normal inspection - Respiratory Respiratory exam: Normal lung sounds bilaterally. negative: Respiratory distress - Cardiovascular Cardiovascular Exam: Regular rate, Normal rhythm, Normal heart sounds - GI/Abdominal GI/Abdominal exam: Soft, Normal bowel sounds. negative: Distended, Guarding, Rebound, Rigid, Tenderness - Rectal Rectal exam: Deferred - exam: Deferred - Extremities Extremities exam: Normal inspection - Back Back exam: Denies: CVA tenderness (R), CVA tenderness (L) - Neurological Neurological exam: Alert, Oriented X3 - Psychiatric Psychiatric exam: Normal affect, Normal mood - Skin Skin exam: Dry, Intact, Normal color, Warm Course Vital Signs 09/17/18 16:25 Pulse Rate 64 Respiratory 20 Rate Blood Pressure 109/63 Pulse Ox 100 - Reevaluation(s) Reevaluation #1: The labs results were reviewed There are no acute significant abnormalities of the CBC There are no acute significant abnormalities of the CMP 09/17/18 17:28 09/17/18 18:29 The UA is negative The nausea has resolved. No abdominal pain or diarrhea We discussed DC, home care and reasons to return to the ED Medical Decision Making - Lab Data Result diagrams: 09/17/18 16:40 09/17/18 16:40 Disposition Disposition: Discharge Clinical Impression: Vomiting Qualifiers: Vomiting type: unspecified Vomiting Intractability: non-intractable Nausea presence: with nausea Qualified Code(s): R11.2 - Nausea with vomiting, unspecified Disposition: Home, Self-Care Condition: (1) Good Instructions: Acute Nausea and Vomiting (ED) Additional Instructions: Call your doctor for the next available follow up appointment Return to the ER for a recheck if worse, any new concerns or questions Take the prescriptions provided as directed Review this ER visit and the tests performed with your family doctor Prescriptions: Ondansetron [Zofran Odt] 4 mg PO Q8H #15 tab.rapdis Forms: Patient Portal Access Time of Disposition: 18:29 Quality - Quality Measures Quality Measures: N/A - Blood Pressure Screening Does Patient Have Any of the Following: No Blood Pressure Classification: Normal BP Reading Systolic Measurement: 109 Diastolic Measurement: 70 Screening for High Blood Pressure: < Normal BP, F/U Not Required > [G8783]
[2018-09-17 16:52] LABS: BASO % 0.4 % (0-6); HEMATOCRIT 41.5 % (35.0-47.0); HEMOGLOBIN 13.3 gm/dl (11.6-16.0); MEAN CELL VOLUME 92.8 fl (81-97); MEAN CORPUSCULAR HEMOGLOBIN 29.8 pg (27-33); MEAN PLATELET VOLUME 10.5 fl (7.4-10.4); MONO % 8.6 % (0-9); PLATELET COUNT 214 K/uL (130-400); RED BLOOD COUNT 4.47 M/uL (3.80-5.40); RED CELL DISTRIBUTION WIDTH 14.5 % (11.5-14.5); WHITE BLOOD COUNT W/O DIFF 6.9 K/uL (4.2-12.2)
[2018-09-17 17:04] LABS: BILIRUBIN,TOTAL < 0.20 mg/dL (0.2-1.0); BLOOD UREA NITROGEN 10 mg/dL (6-20); CREATININE 0.8 mg/dL (0.5-0.9); EST GLOMERULAR FILTRATION RATE > 60 mL/min
[2018-09-17 17:05] LABS: LIPASE 21 U/L (13-60); TOTAL PROTEIN 7.1 g/dL (6.6-8.7)
[2018-09-17 17:07] LABS: GLUCOSE,RANDOM 129 mg/dL (74-109)
[2018-09-17 17:09] LABS: ALT/SGPT 27 U/L (<33)
[2018-09-17 17:10] LABS: ALB/GLOB RATIO 1.7 (1.1-1.8); ALBUMIN 4.5 g/dL (4.0-5.0); ALKALINE PHOSPHATASE 75 U/L (35-104); AST/SGOT 32 U/L (10.0-35.0)
[2018-09-17 18:15] LABS: URINE APPEARANCE CLEAR; URINE BILIRUBIN NEGATIVE (NEGATIVE); URINE BLOOD NEGATIVE (NEGATIVE); URINE COLOR YELLOW; URINE GLUCOSE (UA) NEGATIVE (NEGATIVE); URINE KETONE NEGATIVE (NEGATIVE); URINE LEUKOCYTE ESTERASE NEGATIVE (NEGATIVE); URINE NITRITE NEGATIVE (NEGATIVE); URINE PROTEIN NEGATIVE (NEGATIVE); URINE UROBILINOGEN 0.2 E.U./dL (0.20 - 1.00)
[2018-09-17 18:18] LABS: HCG,QUALITATIVE URINE NEGATIVE (NEGATIVE)
== END 2018-09-17 18:39 | disposition home or self-care (01) ==
LOC: ER 16:21
DX: R11.2 Nausea with vomiting, unspecified (principal); F17.210 Nicotine dependence, cigarettes, uncomplicated
CPT/HCPCS: 99284 ×2; 96374; 96361; 83690; 85025; 80053; 81003; 81025; J2405; J7030

== ENCOUNTER 2018-10-04 11:25 | Emergency (ER) | payer MEDICAID ==
--- NOTE | 2018-10-04 12:46 | Emergency Department Record ---
History of Present Illness - General Chief Complaint: Palpitations Stated Complaint: FAST HEART RATE Time Seen by Provider: 10/04/18 12:06 Source: Patient, RN notes reviewed Mode of Arrival: Ambulatory - History of Present Illness Initial Comments: patient states heart racing and upon arrival his heart rate was 80 and in normal sinus rythm. Patient states under stress because unemployed and also seeing a coucilor in 1 day for depression and she has a his of cutting her wrist in jun 2018 and was treated at [facility] for 2 days. Currently not suicidal but depressed about not finding a job. MD Complaint: "Heart racing", Palpitations Onset/Timin -: Hour(s) Context: Occurred during rest Associated Symptoms: Denies other symptoms - Related Data Previous Rx's Medication Instructions Recorded Pantoprazole Sodium [Protonix] 40 mg PO DAILY #30 tablet. 08/08/18 Ondansetron [Zofran Odt] 4 mg PO Q8H #15 tab.rapdis 09/17/18 Hydroxyzine Pamoate [Vistaril] 25 mg PO Q6H #10 capsule 10/04/18 Allergies Allergy/AdvReac Type Severity Reaction Status Date / Time omeprazole AdvReac Intermediate ABDOMINAL Verified 10/04/18 11:39 PAIN Travel Screening - Travel/Exposure Within Last 30 Days Have you traveled within the last 30 days?: No - Travel/Exposure Within Last Year Have you traveled outside the [place] in the last year?: No - Additonal Travel Details Have you been exposed to anyone with a communicable illness?: No - Travel Symptoms Symptom Screening: None Review of Systems Reviewed: No additional complaints except as noted below Constitutional: Reports: As per HPI. Denies: Chills, Fever, Malaise, Night swe ats, Weakness, Weight change Eyes: Reports: As per HPI. Denies: Eye discharge, Eye pain, Photophobia, Vision change ENT: Reports: As per HPI. Denies: Congestion, Dental pain, Ear pain, Epistaxis, Hearing loss, Throat pain Respiratory: Reports: As per HPI. Denies: Cough, Dyspnea, Hemoptysis, Stridor, Wheezes Cardiovascular: Reports: As per HPI. Denies: Arrhythmia, Chest pain, Dyspnea on exertion, Edema, Murmurs, Orthopnea, Palpitations, Paroxysmal nocturnal dyspnea, Rheumatic Fever, Syncope Endocrine: Reports: As per HPI. Denies: Fatigue, Heat or cold intolerance, Polydipsia, Polyuria Gastrointestinal: Reports: As per HPI. Denies: Abdominal pain, Constipation, Diarrhea, Hematemesis, Hematochezia, Melena, Nausea, Vomiting Genitourinary: Reports: As per HPI. Denies: Abnormal menses, Discharge, Dyspareunia, Dysuria, Frequency, Hematuria, Incontinence, Retention, Urgency Musculoskeletal: Reports: As per HPI. Denies: Arthralgia, Back pain, Gout, Joint swelling, Myalgia, Neck pain Skin: Reports: As per HPI. Denies: Bruising, Change in color, Change in hair/ nails, Lesions, Pruritus, Rash Neurological: Reports: As per HPI. Denies: Abnormal gait, Confusion, Headache, Numbness, Paresthesias, Seizure, Tingling, Tremors, Vertigo, Weakness Psychiatric: Reports: As per HPI. Denies: Anxiety, Auditory hallucinations, Depression, Homicidal thoughts, Suicidal thoughts, Visual hallucinations Hematological/Lymphatic: Reports: As per HPI. Denies: Anemia, Blood Clots, Easy bleeding, Easy bruising, Swollen glands Past Medical History - SOCIAL HISTORY Smoking Status: Current every day smoker Alcohol Use: None Drug Use: Occasional Drug Use Detail:: Marijuana - RESPIRATORY Hx Respiratory Disorders: Yes Hx Bronchitis: Yes (2018) - CARDIOVASCULAR Hx Cardio Disorders: No - NEURO Hx Neuro Disorders: Yes Hx Headaches: Yes - GI Hx GI Disorders: Yes Hx Abdominal Pain: Yes Hx Reflux: Yes Hx Nausea/Vomiting: Yes Hx Rectal Bleeding: Yes Hx Ulcer: Yes Hx Wt Loss/Wt Gain: Yes - Hx Genitourinary Disorders: Yes Hx UTI: Yes - ENDOCRINE Hx Endocrine Disorders: No - MUSCULOSKELETAL Hx Musculoskeletal Disorders: Yes - PSYCH Hx Psych Problems: Yes Hx Depression: Yes Comment:: ADHD; ODD - HEMATOLOGY/ONCOLOGY Hx Hematology/Oncology Disorders: No Family Medical History Any Significant Family History?: Yes Hx Depression: Brother/Sister *Depression Comment: sister Hx Heart Disease: Grandparents Hx HTN: Mother, Grandparents Hx Kidney Disease: Mother Hx Resp Disorders: Mother *Resp Comment: copd Physical Exam - General General Appearance: Alert, Oriented x3, Cooperative, No acute distress - Head Head exam: Normal inspection - Eye Eye exam: Normal appearance, PERRL Pupils: Normal accommodation - ENT ENT exam: Normal exam, Mucous membranes moist, Normal external ear exam, Normal orophraynx, TM's normal bilaterally Ear exam: Normal external inspection. negative: External canal tenderness Nasal Exam: Normal inspection. negative: Discharge, Sinus tenderness Mouth exam: Normal external inspection, Tongue normal Teeth exam: Normal inspection. negative: Dental caries Throat exam: Normal inspection. negative: Tonsillar erythema, Tonsillar exudate - Neck Neck exam: Normal inspection, Full ROM. negative: Tenderness - Respiratory Respiratory exam: Normal lung sounds bilaterally. negative: Respiratory distress - Cardiovascular Cardiovascular Exam: Regular rate, Normal rhythm, Normal heart sounds - GI/Abdominal GI/Abdominal exam: Soft, Normal bowel sounds. negative: Tenderness - Rectal Rectal exam: Deferred - exam: Deferred - Extremities Extremities exam: Normal inspection, Full ROM, Normal capillary refill. negative: Tenderness - Back Back exam: Reports: Normal inspection, Full ROM. Denies: Muscle spasm, Rash noted, Tenderness - Neurological Neurological exam: Alert, Normal gait, Oriented X3, Reflexes normal - Psychiatric Psychiatric exam: Normal affect, Normal mood - Skin Skin exam: Dry, Intact, Normal color, Warm Course Vital Signs 10/04/18 11:40 Temperature 97.9 F Pulse Rate 82 Respiratory 20 Rate Blood Pressure 136/101 Pulse Ox 100 Medical Decision Making - Data Complexity MDM Data: Labs Ordered and/or Reviewed (urine positive for marijuana), EKG Ordered and/or Reviewed (NSR no acute changes, not tachycardic) - Lab Data Result diagrams: 10/04/18 12:47 10/04/18 12:47 Disposition Clinical Impression: Palpitations, Anxiety Disposition: Home, Self-Care Condition: (1) Good Instructions: Heart Palpitations (ED) Additional Instructions: follow up with a family Dr in one week and follow up with mosaic tiler as scheduled Prescriptions: Hydroxyzine Pamoate [Vistaril] 25 mg PO Q6H #10 capsule Forms: Patient Portal Access Time of Disposition: 13:42 Quality - Quality Measures Quality Measures: N/A - Blood Pressure Screening Does Patient Have Any of the Following: No, Active Dx of HTN Blood Pressure Classification: Hypertensive Reading Systolic Measurement: 136 Diastolic Measurement: 101 Screening for High Blood Pressure: < First Hypertensive BP, F/U Documented > [G8950] First Hypertensive Follow-up Interventions: Referral to alternative/primary care provider.
[2018-10-04 12:55] LABS: ABSOLUTE NEUTROPHIL COUNT 7.38; BASO % 0.2 % (0-6); EOS % 0.3 % (0-6); GRAN % 69.4 % (47-80); HEMATOCRIT 42.7 % (35.0-47.0); HEMOGLOBIN 14.3 gm/dl (11.6-16.0); MEAN CELL VOLUME 90.3 fl (81-97); MEAN CORPUSCULAR HEMOGLOBIN 30.2 pg (27-33); MEAN CORPUSCULAR HGB CONC 33.5 g/dl (32-36); MEAN PLATELET VOLUME 10.1 fl (7.4-10.4); MONO % 10.1 % (0-9); PLATELET COUNT 194 K/uL (130-400); RED BLOOD COUNT 4.73 M/uL (3.80-5.40); RED CELL DISTRIBUTION WIDTH 14.4 % (11.5-14.5); WHITE BLOOD COUNT W/O DIFF 10.6 K/uL (4.2-12.2)
[2018-10-04 13:04] LABS: BLOOD UREA NITROGEN 8 mg/dL (6-20); CREATININE 0.6 mg/dL (0.5-0.9); EST GLOMERULAR FILTRATION RATE > 60 mL/min
[2018-10-04 13:06] LABS: GLUCOSE,RANDOM 101 mg/dL (74-109)
[2018-10-04 13:19] LABS: THYROID STIMULATING HORMONE 3.33 uIU/mL (0.270-4.20)
[2018-10-04 13:34] LABS: URINE APPEARANCE CLEAR; URINE BILIRUBIN NEGATIVE (NEGATIVE); URINE BLOOD NEGATIVE (NEGATIVE); URINE COLOR YELLOW; URINE GLUCOSE (UA) NEGATIVE (NEGATIVE); URINE KETONE TRACE (NEGATIVE); URINE LEUKOCYTE ESTERASE NEGATIVE (NEGATIVE); URINE NITRITE NEGATIVE (NEGATIVE); URINE PROTEIN NEGATIVE (NEGATIVE)
[2018-10-04 13:40] LABS: AMPHETAMINE SCREEN URINE NOT DETECTED; BARBITURATE SCREEN URINE NOT DETECTED; BENZODIAZEPINE SCREEN URINE NOT DETECTED; COCAINE SCREEN URINE NOT DETECTED; METHADONE SCREEN URINE NOT DETECTED; METHAMPHETAMINE SCREEN NOT DETECTED; OPIATE SCREEN URINE NOT DETECTED; OXYCODONE SCREEN URINE NOT DETECTED; PHENCYCLIDINE SCREEN URINE NOT DETECTED; PROPOXYPHENE SCREEN URINE NOT DETECTED; THC SCREEN URINE DETECTED; TRICYCLIC ANTIDEPRESSANT SCRN NOT DETECTED
[2018-10-04 15:55] LABS: HCG,QUALITATIVE URINE NEGATIVE (NEGATIVE)
== END 2018-10-04 13:55 | disposition home or self-care (01) ==
LOC: ER 11:25
DX: R00.2 Palpitations (principal); F41.8 Other specified anxiety disorders; F17.210 Nicotine dependence, cigarettes, uncomplicated
CPT/HCPCS: 80048; 80305; 80320; 81003; 81025; 84443; 85025; 93005; 93010; 99284

== ENCOUNTER 2018-11-18 21:44 | Emergency (ER) | payer MEDICAID ==
--- NOTE | 2018-11-18 22:00 | Emergency Department Record ---
History of Present Illness - General Stated Complaint: SUICIDAL/DRUG PROBLEM Time Seen by Provider: 11/18/18 21:46 Source: Patient Mode of Arrival: Ambulatory Limitations: No limitations - History of Present Illness Initial Comments: 18 yo female presents with ongoing depression and thoughts of suicidal ideation. She states she was recently a [facility] program. She is also followed by her PCP Radha Orozco NP at [facility]. She has made changes to medications recently without improvements in her symptoms. She states she is worse than when she was in [facility] and worse than when she was at her PCP. She has a plan to kill herself by slitting her wrists. She does not feel safe and neither does her mother. She admits to cocaine and alcohol. Last use was Tuesday with none today. No other current health concerns. MD Complaint: Feels depressed, Suicidal ideation -: Week(s) Associated Psychiatric Symptoms: Suicidal ideation History of same: Yes Quality: Constant Improves With: None Worsens With: Other Context: Other (Life is overwhleming) Associated Symptoms: Denies other symptoms Treatments Prior to Arrival: None If Self Harm: Admits thoughts of self harm, Has plan, Has acted on plan, Self- inflicted trauma - Marshall Coma Scale Eye Response: (4) Open spontaneously Motor Response: (6) Obeys commands Verbal Response: (5) Oriented Usman Total: 15 - Related Data Previous Rx's Medication Instructions Recorded Pantoprazole Sodium [Protonix] 40 mg PO DAILY #30 tablet. 08/08/18 Ondansetron [Zofran Odt] 4 mg PO Q8H #15 tab.rapdis 09/17/18 Allergies Allergy/AdvReac Type Severity Reaction Status Date / Time omeprazole AdvReac Intermediate ABDOMINAL Unverified 11/02/18 07:14 PAIN Review of Systems Constitutional: Denies: Chills, Fever, Malaise, Weakness Eyes: Denies: Eye discharge ENT: Denies: Congestion, Throat pain Respiratory: Denies: Cough, Dyspnea, Hemoptysis, Wheezes Cardiovascular: Denies: Chest pain, Palpitations, Syncope Endocrine: Denies: Fatigue, Polydipsia, Polyuria Gastrointestinal: Denies: Abdominal pain, Diarrhea, Nausea, Vomiting Genitourinary: Denies: Dysuria Musculoskeletal: Denies: Arthralgia, Back pain, Myalgia Skin: Denies: Bruising, Change in color, Rash Neurological: Denies: Headache, Numbness, Weakness Psychiatric: Reports: Suicidal thoughts. Denies: Anxiety Hematological/Lymphatic: Denies: Easy bleeding, Easy bruising Past Medical History - SOCIAL HISTORY Smoking Status: Current every day smoker Drug Use: Occasional Drug Use Detail:: Marijuana - RESPIRATORY Hx Respiratory Disorders: Yes Hx Bronchitis: Yes (2018) - CARDIOVASCULAR Hx Cardio Disorders: No - NEURO Hx Neuro Disorders: Yes Hx Headaches: Yes - GI Hx GI Disorders: Yes Hx Abdominal Pain: Yes Hx Reflux: Yes Hx Nausea/Vomiting: Yes Hx Rectal Bleeding: Yes Hx Ulcer: Yes Hx Wt Loss/Wt Gain: Yes - Hx Genitourinary Disorders: Yes Hx UTI: Yes - ENDOCRINE Hx Endocrine Disorders: No - MUSCULOSKELETAL Hx Musculoskeletal Disorders: Yes - PSYCH Hx Psych Problems: Yes Hx Depression: Yes Comment:: ADHD; ODD - HEMATOLOGY/ONCOLOGY Hx Hematology/Oncology Disorders: No Family Medical History Hx Depression: Brother/Sister *Depression Comment: sister Hx Heart Disease: Grandparents Hx HTN: Mother, Grandparents Hx Kidney Disease: Mother Hx Resp Disorders: Mother *Resp Comment: copd Physical Exam - General General Appearance: Alert, Oriented x3, Cooperative, No acute distress Limitations: No limitations - Head Head exam: Atraumatic, Normal inspection Head exam detail: negative: Abrasion, Contusion, Hematoma, Laceration - Eye Eye exam: Normal appearance, PERRL. negative: Conjunctival injection, Scleral icterus - ENT ENT exam: Normal exam, Mucous membranes moist Ear exam: Normal external inspection Nasal Exam: Normal inspection Mouth exam: Normal external inspection - Neck Neck exam: Normal inspection - Respiratory Respiratory exam: Normal lung sounds bilaterally. negative: Respiratory distress - Cardiovascular Cardiovascular Exam: Regular rate, Normal rhythm, Normal heart sounds Peripheral Pulses: 2+: Radial (R), Radial (L) - Rectal Rectal exam: Deferred - exam: Deferred - Extremities Extremities exam: Full ROM, Other (superficial cuts to the left forearm various ages). negative: Normal inspection, Calf tenderness, Pedal edema, Tenderness - Back Back exam: Reports: Normal inspection - Neurological Neurological exam: Alert, Oriented X3 - Psychiatric Psychiatric exam: Depressed, Suicidal ideation - Skin Skin exam: Abrasion Course - Reevaluation(s) Reevaluation #1: 11/18/18 22:03 The patient admits to worsening suicidal thoughts. She has a plan and states she would act on it. I informed her of the application and certification process due to thoughts of serious self harm. 11/18/18 22:39 The labs results were reviewed There are no acute significant abnormalities of the CBC There are no acute significant abnormalities of the CMP The UA was reviewed. No signs of infection or significant acute abnormality The HCG is negative The UDS was positive for cocaine and cannabis 11/18/18 22:40 The ETOH is negative 11/18/18 22:42 Tylenol and Aspirin are negative UCG is negative The patient is medically cleared for contacting [facility] She has remained cooperative 11/18/18 22:53 TSH is 2.0 11/19/18 01:56 RN continues to communicate with [facility] awaiting approval for transfer 11/19/18 02:37 The patient is accepted for transfer by crisis services at [facility] Medical Decision Making - Lab Data Result diagrams: 11/18/18 22:15 11/18/18 22:15 Disposition Disposition: Transfer Clinical Impression: Suicidal ideation Disposition: Psychiatric Hospital Transfer To: [facility] Reason For Transfer: Suicidal Accepting Physician: Crisis Services Time Discussed w/Accepting Physician: 02:37 Condition: (2) Stable Time of Disposition: 22:43 Quality - Quality Measures Quality Measures: N/A - Blood Pressure Screening Does Patient Have Any of the Following: No Blood Pressure Classification: Pre-Hypertensive BP Reading Systolic Measurement: 125 Diastolic Measurement: 70 Screening for High Blood Pressure: < Pre-Hypertensive BP, F/U Documented > [G8950] Pre-Hypertensive Follow-up Interventions: Referral to alternative/primary care provider.
[2018-11-18] MEDS ORDERED: NICOTINE 21 MG/24 HOUR PATCH TD STA (22:06)
[2018-11-18 22:24] LABS: ABSOLUTE NEUTROPHIL COUNT 6.76; BASO % 0.3 % (0-6); EOS % 1.3 % (0-6); GRAN % 66.2 % (47-80); HEMOGLOBIN 14.3 gm/dl (11.6-16.0); LYMPH % 24.2 % (16-45); MEAN CELL VOLUME 92.3 fl (81-97); MEAN CORPUSCULAR HEMOGLOBIN 30.7 pg (27-33); MEAN CORPUSCULAR HGB CONC 33.3 g/dl (32-36); MEAN PLATELET VOLUME 10.6 fl (7.4-10.4); PLATELET COUNT 209 K/uL (130-400); RED BLOOD COUNT 4.66 M/uL (3.80-5.40); WHITE BLOOD COUNT W/O DIFF 10.2 K/uL (4.2-12.2)
[2018-11-18 22:25] LABS: URINE APPEARANCE CLEAR; URINE BILIRUBIN NEGATIVE (NEGATIVE); URINE BLOOD NEGATIVE (NEGATIVE); URINE COLOR YELLOW; URINE GLUCOSE (UA) NEGATIVE (NEGATIVE); URINE KETONE NEGATIVE (NEGATIVE); URINE LEUKOCYTE ESTERASE NEGATIVE (NEGATIVE); URINE NITRITE NEGATIVE (NEGATIVE); URINE PROTEIN NEGATIVE (NEGATIVE); URINE UROBILINOGEN 0.2 E.U./dL (0.20 - 1.00)
[2018-11-18 22:28] LABS: AMPHETAMINE SCREEN URINE NOT DETECTED; BARBITURATE SCREEN URINE NOT DETECTED; BENZODIAZEPINE SCREEN URINE NOT DETECTED; COCAINE SCREEN URINE DETECTED; METHADONE SCREEN URINE NOT DETECTED; METHAMPHETAMINE SCREEN NOT DETECTED; OPIATE SCREEN URINE NOT DETECTED; OXYCODONE SCREEN URINE NOT DETECTED; PHENCYCLIDINE SCREEN URINE NOT DETECTED; PROPOXYPHENE SCREEN URINE NOT DETECTED; THC SCREEN URINE DETECTED; TRICYCLIC ANTIDEPRESSANT SCRN NOT DETECTED
[2018-11-18 22:35] LABS: BLOOD UREA NITROGEN 12 mg/dL (6-20); CREATININE 0.8 mg/dL (0.5-0.9); EST GLOMERULAR FILTRATION RATE > 60 mL/min
[2018-11-18 22:38] LABS: GLUCOSE,RANDOM 93 mg/dL (74-109)
[2018-11-18 22:40] LABS: ALB/GLOB RATIO 1.9 (1.1-1.8); ALBUMIN 4.6 g/dL (4.0-5.0); ALKALINE PHOSPHATASE 89 U/L (35-104); ALT/SGPT 14 U/L (<33); AST/SGOT 22 U/L (10.0-35.0)
[2018-11-18 22:41] LABS: ACETAMINOPHEN < 5.0 ug/mL (10.0-30.0); SALICYLATE < 0.3 mg/dL (2.8-20)
[2018-11-18 22:51] LABS: THYROID STIMULATING HORMONE 2.03 uIU/mL (0.270-4.20)
== END 2018-11-19 02:59 ==
LOC: ER 21:44
DX: R45.851 Suicidal ideations (principal); F32.9 Major depressive disorder, single episode, unspecified; F91.3 Oppositional defiant disorder; F90.9 Attention-deficit hyperactivity disorder, unspecified type; F17.210 Nicotine dependence, cigarettes, uncomplicated
CPT/HCPCS: 99285 ×2; 85025; 80053; 81003; 84443; 81025; 80305; G0480 ×3; 80320; 80329